=== PATIENT | female | born 2005 | race American Indian/Alaskan Native ===

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

== ENCOUNTER 2025-04-23 12:03 | Emergency (ER) | payer SELFPAY ==
[2025-04-23] MEDS: Ondansetron 4 MG/2 ML SDV IVPUSH ONE (12:41)
== END 2025-04-23 13:57 | disposition home or self-care (01) ==
LOC: DL.ED 12:03
DX: K52.9 Noninfective gastroenteritis and colitis, unspecified (principal); Z88.0 Allergy status to penicillin; Z86.16 Personal history of COVID-19
CPT/HCPCS: 96361; 96374; 99283; 99283-25; A9270-GY; J2405; J7030